=== PATIENT | male | born 1990 | race Hispanic/Latino ===

== ENCOUNTER 2023-08-31 08:26 | Outpatient (CLI) | payer BC ==
[2023-08-31 09:25] LABS: #Eosinphils 0.3 10x3/uL (0.0-0.5); #Monocytes 0.4 10x3/uL (0.0-1.1); #Neutrophils 4.6 10x3/uL (1.5-8.4); %Basophils 0.5 % (0.0-2.0); %Eosinophils 3.2 % (0.0-6.0); %Neutrophils 52.7 % (40.0-75.0); Hematocrit 44.4 % (38.8-50.0); Hemoglobin 14.5 g/dL (13.5-17.5); Mean Corpuscular HGB CONC 32.7 g/dL (32.0-36.0); Mean Corpuscular Hemoglobin 27.7 pg (27.0-33.0); Mean Corpuscular Volume 84.7 fl (81.2-95.1); Mean Platelet Volume 9.5 fl (7.4-10.4); Platelet Count 323 10x3/uL (150-450); RBC Distribution Width 12.8 % (11.5-14.5); Red Blood Cell (RBC) Count 5.24 10x6/uL (4.32-5.72); White Blood Cell (WBC) Count 8.6 10x3/uL (3.5-10.5)
[2023-08-31 10:44] LABS: ALT (SGPT) 130 U/L (8-55); AST (SGOT) 93 U/L (5-34); Albumin 4.2 g/dL (3.5-5.0); Alkaline Phosphatase 82 U/L (40-110); Anion Gap 17 mmol/L (10-20); BUN (Urea Nitrogen) 17 mg/dL (8.9-20.6); Bilirubin, Direct 0.3 mg/dL (0.1-0.3); Bilirubin, Total 0.7 mg/dL (0.2-1.2); Calc. Creatinine Clearance 0 mL/min (70-130); Calcium 9.7 mg/dL (7.8-10.44); Carbon Dioxide 23 mmol/L (22-29); Chloride 101 mmol/L (98-107); Estimated GFR 109; Glucose 128 mg/dL (70-105); Potassium 4.5 mmol/L (3.5-5.1); Protein, Total 8.2 g/dL (6.0-8.3); Sodium 136 mmol/L (136-145)
== END 2023-08-31 08:27 | disposition home or self-care (01) ==
LOC: LABBT 08:26
PROVIDERS: ATTEND Surgery
DX: Z01.812 Encounter for preprocedural laboratory examination (principal); E66.01 Morbid (severe) obesity due to excess calories
CPT/HCPCS: 80053; 80076; 85025

== ENCOUNTER 2023-08-31 08:30 | Inpatient (IN) | payer BC ==
[2023-08-31 08:49] VITALS: BMI 69.0
[2023-09-06] MEDS ORDERED: SUGAMMADEX SODIUM 200 MG/2 ML VIAL ONE (09:05)
[2023-09-06] MEDS ORDERED: fentaNYL 50 mcg/mL 1 mL Vial ONE ×3 (09:05→12:28)
[2023-09-06] MEDS ORDERED: Famotidine/PF 20 mg/2ml Vial ONE (09:05)
[2023-09-06] MEDS ORDERED: Meperidine HCl/PF 25 MG/ML VIAL ONE (09:05)
[2023-09-06] MEDS ORDERED: Bupivacaine 0.25% HCL 30 ML VIAL ONE (09:08)
[2023-09-06] MEDS ORDERED: EPINEPHrine 1 MG/ML AMP ONE (09:08)
[2023-09-06] MEDS ORDERED: Sodium Chloride 0.9% 100 ML ONE (09:16)
[2023-09-06] MEDS ORDERED: CEFAZOLIN 2 GM VIAL ONE (09:16)
[2023-09-06] MEDS ORDERED: PROPOFOL 200 MG/20 ML VIAL ONE (09:26)
[2023-09-06] MEDS ORDERED: Lidocaine 1% PF 5 ML VIAL ONE (09:26)
[2023-09-06] MEDS ORDERED: Succinylcholine 200 MG/10 ml SYRINGE FS ONE (09:26)
[2023-09-06] MEDS ORDERED: Ondansetron PF 4 MG/2 ML Vial ONE (09:26)
[2023-09-06] MEDS ORDERED: Ketorolac Tromethamine 30 MG/ML VIAL ONE ×2 (09:26→12:51)
[2023-09-06] MEDS ORDERED: Rocuronium Bromide 10 MG/ML (10ML VIAL) ONE (09:26)
[2023-09-06] MEDS ORDERED: Promethazine HCl 25 MG/ML VIAL IM PRN ×2 (10:41→10:49)
[2023-09-06] MEDS ORDERED: Meperidine HCl/PF 25 MG/ML VIAL SLOW IVP PRN (10:41)
[2023-09-06] MEDS ORDERED: Ondansetron HCl/PF 4 MG/2 ML Vial IVP PRN (10:41)
[2023-09-06] MEDS ORDERED: Ondansetron PF 4 MG/2 ML Vial IVP PRN (10:49)
[2023-09-06] MEDS ORDERED: Morphine 2 MG/ML VIAL SLOW IVP PRN (10:49)
[2023-09-06] MEDS ORDERED: hydrALAZINE 20 MG/ML VIAL SLOW IVP PRN (10:49)
[2023-09-06] MEDS ORDERED: diphenhydrAMINE 50 MG/ML VIAL IVP PRN (10:49)
[2023-09-06] MEDS ORDERED: Dextrose 50% Abboject 50 ML SYRINGE SLOW IVP PRN (10:49)
[2023-09-06] MEDS ORDERED: Ipratropium/Albuterol 3 ML NEB NEB PRN (10:49)
[2023-09-06] MEDS ORDERED: Morphine 4 MG/ML VIAL SLOW IVP PRN (10:49)
[2023-09-06] MEDS ORDERED: Glucagon 1 MG/ML KIT IM PRN (10:49)
[2023-09-06] MEDS ORDERED: Dextrose 5% in Water 1,000 ML IV PRN (10:49)
[2023-09-06] MEDS ORDERED: hydrALAZINE 20 MG/ML VIAL ONE (11:16)
[2023-09-06] MEDS ORDERED: D5 1/2 NS w/20 mEq KCL 1,000 ML ONE (12:52)
[2023-09-06] MEDS: Ketorolac Tromethamine 30 MG/ML VIAL IVP SCH ×2 (12:55→18:08)
[2023-09-06] MEDS: D5 1/2 NS w/20 mEq KCL 1,000 ML IV SCH ×2 (12:55→18:09)
[2023-09-06] MEDS ORDERED: FLU VACC QS2023-24(6MOS UP)/PF 60 MCG/0.5 ML SYRINGE IM ONE (17:30)
[2023-09-06] MEDS: CEFAZOLIN 2 GM in Sodium Chloride 0.9% 100 ML IVPB SCH (18:09)
[2023-09-06] MEDS: Hydrocodone-Acetamin 15 ML UDCUP PO PRN (21:19)
[2023-09-07] MEDS: D5 1/2 NS w/20 mEq KCL 1,000 ML IV SCH ×2 (01:25→12:05)
[2023-09-07] MEDS: CEFAZOLIN 2 GM in Sodium Chloride 0.9% 100 ML IVPB SCH (01:26)
[2023-09-07] MEDS: Ketorolac Tromethamine 30 MG/ML VIAL IVP SCH ×2 (01:26→05:58)
[2023-09-07 05:39] LABS: #Monocytes 0.4 thou/uL (0.11-0.59); #Neutrophils 9.2 thou/uL (1.40-6.50); %Basophils 0.1 % (0.0-1.0); %Lymphocytes 12.1 % (21.0-51.0); %Monocytes 3.5 % (0.0-10.0); %Neutrophils 83.6 % (42.0-75.0); Hematocrit 39.3 % (42.0-52.0); Hemoglobin 12.6 g/dL (14.0-18.0); Mean Corpuscular HGB CONC 32.1 g/dL (32.0-36.0); Mean Corpuscular Hemoglobin 28.3 pg (27.0-31.0); Mean Corpuscular Volume 88.3 fl (78.0-98.0); Mean Platelet Volume 9.6 fL (7.4-10.4); Platelet Count 260 10x3/uL (130-400); RBC Distribution Width 13.2 % (11.5-14.5); Red Blood Cell (RBC) Count 4.45 mill/uL (4.70-6.10)
[2023-09-07] MEDS: Hydrocodone-Acetamin 15 ML UDCUP PO PRN (05:58)
[2023-09-07 06:19] LABS: Anion Gap 12 mmol/L (10-20); BUN (Urea Nitrogen) 9 mg/dL (8.9-20.6); Calc. Creatinine Clearance 294 mL/min (70-130); Calcium 8.9 mg/dL (7.8-10.44); Carbon Dioxide 26 mmol/L (22-29); Chloride 103 mmol/L (98-107); Estimated GFR 105; Glucose 164 mg/dL (70-105); Potassium 4.5 mmol/L (3.5-5.1); Sodium 136 mmol/L (136-145)
[2023-09-07 07:59] VITALS: BP 102/67; TEMP 97.8
[2023-09-07] MEDS ORDERED: Pantoprazole 40 MG VIAL IVP SCH (09:00)
== END 2023-09-07 12:13 | disposition home or self-care (01) | DRG 621 ==
LOC: SURG A 09-06 06:34 → SURG B 09-06 17:00
PROVIDERS: ADMIT Surgery; ATTEND Surgery
PROC: 0DB64Z3 Excision of Stomach, Percutaneous Endoscopic Approach, Vertical (ICD-10-PCS; principal; 2023-09-06)
PROC: 8E0W4CZ Robotic Assisted Procedure of Trunk Region, Percutaneous Endoscopic Approach (ICD-10-PCS; 2023-09-06)
DX: E66.01 Morbid (severe) obesity due to excess calories (principal); Z68.44 Body mass index [BMI] 60.0-69.9, adult
CPT/HCPCS: 36415; 80048; 85025; 88307; 93005; 93010; C1889; C9113; J0171; J0360; J1650; J1885; J2175; J2405; J2704; J3010; J3480; J3490; S0020; S0028